=== PATIENT | female | born 1985 | race African-American/Black ===

== ENCOUNTER 2017-01-31 19:17 | Emergency (ER) | payer MEDICAID ==
[~2017-01-31] VITALS: Ht 172.7 cm; Wt 104.0 kg
[~2017-01-31 19:17] MED LIST: [UNRECOGNIZED DRUG - CODE]
[2017-01-31 20:48] VITALS: BP 150/107
[2017-01-31 21:03] LABS: EOSINOPHILS % 2.2 % (0.0-5.0); HEMATOCRIT. 40.1 % (36.0-48.0); HEMOGLOBIN. 13.5 g/dL (12.0-16.0); LYMPHOCYTES % 28.5 % (20.0-50.0); MEAN CORPUSCULAR HEMOGLOBIN 29.3 pg (28.0-32.0); MEAN CORPUSCULAR HGB CONC 33.7 g/dL (31.0-37.0); MEAN CORPUSCULAR VOLUME 86.9 fL (81.0-99.0); MEAN PLATELET VOLUME 8.2 fl (7.4-10.4); MONOCYTES % 6.5 % (2.0-8.0); NEUTROPHILS % 61.8 % (40.0-76.0); PLATELET 261 x1000/uL (130-400); RED BLOOD CELL COUNT 4.61 mill/uL (4.2-5.4); RED CELL DISTRIBUTION WIDTH 13.7 % (11.6-14.6); WHITE BLOOD COUNT 14.9 x1000/uL (4.5-11.0)
[2017-01-31 21:19] LABS: ALANINE AMINOTRANSFERASE 25 IU/L (13-61); ALBUMIN 3.6 g/dL (3.4-5.0); ANION GAP 14; CALCIUM 8.5 mg/dL (8.5-10.1); CARBON DIOXIDE 24 mEq/L (21-32); CHLORIDE 104 mEq/L (98-107); CREATINE KINASE 407 IU/L (26-192); HCG SCREEN NEGATIVE; INDEX HEMOLYSI 1 (1-3); INDEX ICTERIC 1 (1-4); INDEX LIPEMIC 1 (1-3); LIPASE 74 IU/L (73-393); UREA NITROGEN BLOOD 10 mg/dL (7-21); eGFR > 60 mL/min (>60)
[2017-01-31 21:20] LABS: TROPONIN I < 0.02 ng/mL (0.00-0.04)
== END 2017-01-31 23:33 | disposition home or self-care (01) ==
LOC: ER 21:16
DX: M94.0 Chondrocostal junction syndrome [Tietze] (principal); F17.210 Nicotine dependence, cigarettes, uncomplicated; Z90.49 Acquired absence of other specified parts of digestive tract
CPT/HCPCS: 36415; 71010; 80053; 82550; 83690; 84484; 84703; 85025; 93005; 99285; Z7610; A4565

== ENCOUNTER 2021-11-17 11:45 | Emergency (ER) | payer MEDICAID, OTHER ==
[~2021-11-17] VITALS: Ht 175.3 cm; Wt 107.0 kg
[2021-11-17 12:02] VITALS: BP 143/100
[2021-11-17] MEDS ORDERED: ACETAMINOPHEN 325MG TABLET PO PRN (12:15)
== END 2021-11-17 20:40 | disposition left against medical advice (07) ==
LOC: ER 11:45
DX: N93.9 Abnormal uterine and vaginal bleeding, unspecified (principal); Z98.51 Tubal ligation status; Z53.21 Procedure and treatment not carried out due to patient leaving prior to being seen by health care provider
CPT/HCPCS: 76801

== ENCOUNTER 2024-12-23 10:00 | Emergency (ER) | payer MEDICAID, OTHER ==
[~2024-12-23] VITALS: Ht 170.2 cm; Wt 102.0 kg
[2024-12-23 10:27] VITALS: O2SAT 99
[2024-12-23 10:38] VITALS: BP 136/96; PULSE 96; RESP 14; TEMP 36.4; O2SAT 99
== END 2024-12-23 15:36 | disposition left against medical advice (07) ==
LOC: ER 10:00
DX: J45.909 Unspecified asthma, uncomplicated (principal); Z53.21 Procedure and treatment not carried out due to patient leaving prior to being seen by health care provider